=== PATIENT | female | born 1980 | race American Indian/Alaskan Native ===

== ENCOUNTER 2021-04-23 10:54 | Emergency (ER) | payer SELFPAY | END 2021-04-23 11:00 | disposition left against medical advice (07) | LOC: ED 10:54 | DX: R20.2 Paresthesia of skin (principal); Z53.21 Procedure and treatment not carried out due to patient leaving prior to being seen by health care provider ==

== ENCOUNTER 2021-04-24 03:17 | Emergency (ER) | payer OTHER ==
[2021-04-24 03:48] VITALS: BP 148/94
--- NOTE | 2021-04-24 07:03 | Emergency Department Report ---
ED General Adult HPI - General Chief complaint: Neuro Symptoms/Deficit Stated complaint: NUMBNESS AND TINGLING IN LEFT ARM Time Seen by Provider: 04/24/21 06:24 Source: patient Mode of arrival: Ambulatory Limitations: No Limitations - History of Present Illness Initial comments: This is a 40-year-old female nontoxic, well nourished in appearance, no acute signs of distress presents to the ED with c/o of 1 episode of left arm numbness followed by body aches that occurred briefly less than 5 minutes last night. Patient stated she was walking her dog when symptoms occurred. Patient otherwise denies any symptoms or complaints at this time. Patient stated after the 5 minutes this has resolved. Patient was concerned and came to the emergency room today. Patient denies any facial drooping, slurred speech, one- sided weakness, or any visual changes. Patient denies any headaches, numbness, tingling, fever, chills, nausea, vomiting, chest pain, shortness of breath, stiff neck. Patient denies any allergies or significant PMH. -: Last night Location: left, upper extremity Severity scale (0 -10): 0 Consistency: now resolved Improves with: none Worsens with: none Associated Symptoms: denies other symptoms. denies: confusion, chest pain, cough, diaphoresis, fever/chills, headaches, loss of appetite, malaise, nausea/vomiting, rash, seizure, shortness of breath, syncope, weakness Treatments Prior to Arrival: none - Related Data Home Medications Medication Instructions Recorded Confirmed Last Taken No Known Home Medications [No 11/08/17 11/08/17 Unknown Reported Home Medications] Allergies Allergy/AdvReac Type Severity Reaction Status Date / Time No Known Allergies Allergy Unverified 11/07/17 11:32 ED Review of Systems ROS: Stated complaint: NUMBNESS AND TINGLING IN LEFT ARM Other details as noted in HPI Comment: All other systems reviewed and negative Constitutional: denies: chills, fever Eyes: denies: eye pain, eye discharge, vision change ENT: denies: ear pain, throat pain Respiratory: denies: cough, shortness of breath, wheezing Cardiovascular: denies: chest pain, palpitations Endocrine: no symptoms reported Gastrointestinal: denies: abdominal pain, nausea, diarrhea Genitourinary: denies: urgency, dysuria, discharge Musculoskeletal: denies: back pain, joint swelling, arthralgia Skin: denies: rash, lesions Neurological: denies: headache, weakness, numbness, paresthesias, confusion, abnormal gait, vertigo Psychiatric: denies: anxiety, depression Hematological/Lymphatic: denies: easy bleeding, easy bruising ED Past Medical Hx - Past Medical History Previous Medical History?: No Hx Congestive Heart Failure: No Hx Diabetes: No Hx Asthma: No Hx COPD: No - Surgical History Past Surgical History?: No - Social History Smoking Status: Never Smoker Substance Use Type: None - Medications Home Medications: Home Medications Medication Instructions Recorded Confirmed Last Taken Type No Known Home Medications [No 11/08/17 11/08/17 Unknown History Reported Home Medications] ED Physical Exam - General Limitations: No Limitations General appearance: alert, in no apparent distress - Head Head exam: Present: atraumatic, normocephalic - Eye Eye exam: Present: normal appearance, PERRL, EOMI Pupils: Present: normal accommodation - Neck Neck exam: Present: normal inspection, full ROM. Absent: lymphadenopathy - Respiratory Respiratory exam: Absent: respiratory distress - Cardiovascular Cardiovascular Exam: Present: regular rate - GI/Abdominal GI/Abdominal exam: Present: soft. Absent: distended, tenderness - Extremities Exam Extremities exam: Present: normal inspection, full ROM, normal capillary refill. Absent: tenderness, joint swelling - Back Exam Back exam: Present: normal inspection, full ROM. Absent: tenderness, CVA tenderness (R), CVA tenderness (L), muscle spasm, paraspinal tenderness, vertebral tenderness, rash noted - Neurological Exam Neurological exam: Present: alert, oriented X3, normal gait - Expanded Neurological Exam Expanded Patient oriented to: Present: person, place, time Cranial nerves: EOM's Intact: Normal, Facial Sensation: Normal Cerebellar function: Finger to Nose: Normal Upper motor neuron: Pronator Drift: Normal, Sensory Extinction: Normal Motor strength exam: RUE: 5, LUE: 5, RLE: 5, LLE: 5 Best Eye Response (Canyon): (4) open spontaneously Best Motor Response ([place]): (6) obeys commands Best Verbal Response (Misha): (5) oriented Misha Total: 15 - Psychiatric Psychiatric exam: Present: normal affect, normal mood - Skin Skin exam: Present: warm, dry, intact, normal color. Absent: rash ED Course Vital Signs 04/24/21 03:20 Temperature 98.4 F Pulse Rate 84 Respiratory 18 Rate Blood Pressure 148/94 O2 Sat by Pulse 99 Oximetry - Reevaluation(s) Reevaluation #1: 04/24/21 07:08 Patient is speaking in full sentences with no signs of distress noted. Reevaluation #2: 04/24/21 07:44 At this time patient is not in the room. As per Denice david RN, patient stated patient was not in the room since her shift started. RN stated was unable to get in touch with patient at this time. Patient eloped without getting any further diagnostic testing, evaluation and appropriate disposition. ED Medical Decision Making - Medical Decision Making The patient was evaluated in the emergency department for symptoms described in the history of present illness. He/she was evaluated in the context of the global COVID-19 pandemic, which necessitated consideration that the patient might be at risk for infection with the virus that causes COVID-19. Institutional protocols and algorithms that pertain to the evaluation of patients at risk for COVID-19 are in a state of rapid change based on information released by regulatory bodies including the CDC and federal and state organizations. These policies and algorithms were followed during the patient's care in the emergency department. Please note that these policies, procedures and recommendations changed on a rapid basis. Critical care attestation.: If time is entered above; I have spent that time in minutes in the direct care of this critically ill patient, excluding procedure time. ED Disposition Clinical Impression: Arm numbness left Disposition: 07 LEFT AWOL/ELOPED Is pt being admited?: No Condition: Undetermined Referrals: BARRY URBAN [Other] - 3-5 Days Forms: AMA Form Time of Disposition: 07:46
== END 2021-04-24 08:00 | disposition left against medical advice (07) ==
LOC: ED 03:17
DX: R20.2 Paresthesia of skin (principal)
CPT/HCPCS: 99281